=== PATIENT | female | born 1995 | race Caucasian/White ===

== ENCOUNTER → 2020-03-13 | Outpatient (CLI) | payer OTHER, SELFPAY ==
--- NOTE | 2020-03-13 14:50 | REP ---
INDICATION: COVID 19. COMPARISON: No comparison study. TECHNIQUE: Two views.. FINDINGS: The lungs are well inflated and free of infiltrate. The pleural angles are sharp. The heart size is normal. Pulmonary vasculature is not increased. No significant bony abnormality is seen. IMPRESSION: Negative chest x-ray. <Electronically signed by Omid Garvey > 03/13/20 [id number]
== END ==
LOC: M RAD 14:04
PROVIDERS: ATTEND Physician Assistant
DX: Z20.828 Contact with and (suspected) exposure to other viral communicable diseases (principal)

== ENCOUNTER 2020-08-24 09:10 | Emergency (ER) | payer MEDICAID, OTHER ==
[~2020-08-24] VITALS: Ht 175.3 cm; Wt 111.4 kg
[2020-08-24 09:11] VITALS: BP 138/89
[2020-08-24] MEDS ORDERED: VENL75CA47 (09:27)
[2020-08-24] MEDS ORDERED: ARIP1TAB6 (09:27)
--- NOTE | 2020-08-24 09:40 | REP ---
INDICATION: injury, pulled on and felt popping sensation. COMPARISON: None. TECHNIQUE: Three views of the shoulder were performed. FINDINGS: The acromioclavicular and glenohumeral relationships are within normal limits. There is no acute fracture or destructive osseous lesion. IMPRESSION: Negative <Electronically signed by Colby Garcia > 08/24/20 0936
[2020-08-24] MEDS ORDERED: METH-1164 PO (10:14)
[2020-08-24] MEDS ORDERED: KETO10TAB PO (10:14)
== END 2020-08-24 10:50 | disposition home or self-care (01) ==
LOC: M ED 09:10
DX: S46.011A Strain of muscle(s) and tendon(s) of the rotator cuff of right shoulder, initial encounter (principal); Y99.0 Civilian activity done for income or pay; Y92.9 Unspecified place or not applicable; Y93.9 Activity, unspecified; Z79.899 Other long term (current) drug therapy

== ENCOUNTER → 2021-03-27 | Outpatient (REF) ==
[~2021-03-27] MED LIST: ARIP1TAB6; KETO10TAB PO; METH-1164 PO; VENL75CA47
== END ==
LOC: M LABSMTC 10:39
PROVIDERS: ATTEND Pediatrics
DX: Z11.52 Encounter for screening for COVID-19 (principal)

== ENCOUNTER → 2021-06-02 | Outpatient (CLI) | payer OTHER ==
[~2021-06-02] MED LIST changes: +IBUP-1114 PO
== END ==
LOC: M LABSMTC 11:17
PROVIDERS: ATTEND Orthopaedic Surgery Sports Medicine
DX: Z01.812 Encounter for preprocedural laboratory examination (principal); Z20.822 Contact with and (suspected) exposure to COVID-19

== ENCOUNTER 2021-06-07 06:53 | Day surgery (SDC) | payer OTHER ==
[~2021-06-07] VITALS: Ht 175.3 cm; Wt 108.4 kg
[~2021-06-07 06:53] MED LIST changes: +LR 1,000 ML IV ONE; +ceFAZolin SOD 2 GM in IV 1 EA IV ONE
[2021-06-07] MEDS ORDERED: fentaNYL 100 MCG/2 ML INJECTION (J3010) IV PRN ×2 (07:01→12:15)
[2021-06-07] MEDS ORDERED: MIDAZOLAM INJ 2MG/2ML VIAL (J2250 PER 1MG) IV PRN (07:01)
[2021-06-07] MEDS ORDERED: dexameTHASONE 10MG/1ML VIAL PRES.FREE (J1100 PER 1MG) XX ONE (09:00)
[2021-06-07] MEDS ORDERED: EPINEPHrine INJ 1 MG/ML 1ML AMP XX ONE (09:00)
[2021-06-07] MEDS ORDERED: ROPIvacaine 0.5% 30ML INJECTION (J2795 PER 1MG) XX ONE (09:15)
[2021-06-07] MEDS ORDERED: propofoL 200 MG/20 ML VIAL As Ordered ONE (10:19)
[2021-06-07] MEDS ORDERED: dexameTHASONE 4 MG/ML 1ML VIAL (J1100 PER 1MG) As Ordered ONE (10:19)
[2021-06-07] MEDS ORDERED: fentaNYL 100 MCG/2 ML INJECTION (J3010) As Ordered ONE ×2 (10:19→10:39)
[2021-06-07] MEDS ORDERED: ONDANSETRON 4MG/2ML VIAL As Ordered ONE (10:19)
[2021-06-07] MEDS ORDERED: ROCURONIUM BROMIDE 50 MG/5 ML VIAL As Ordered ONE (10:19)
[2021-06-07] MEDS ORDERED: LIDOCAINE 2% 100MG/5ML SDV (FOR ANES.) As Ordered ONE (10:19)
[2021-06-07] MEDS ORDERED: MIDAZOLAM INJ 2MG/2ML VIAL (J2250 PER 1MG) As Ordered ONE (10:19)
[2021-06-07] MEDS ORDERED: ACETAMINOPHEN 1000MG 100ML IV BTL (OFIRMEV) (J0131 PER 10MG) As Ordered ONE (10:25)
[2021-06-07] MEDS ORDERED: SUGAMMADEX SODIUM 500 MG/5 ML VIAL (BRIDION) As Ordered ONE (10:40)
[2021-06-07] MEDS ORDERED: LR 1,000 ML IV SCH ×2 (12:15→12:20)
[2021-06-07] MEDS ORDERED: oxyCODONE 5MG TAB PO PRN (12:15)
[2021-06-07] MEDS ORDERED: ONDANSETRON 4MG/2ML VIAL IV PRN ×2 (12:15→12:20)
[2021-06-07] MEDS ORDERED: PERCOCET 5MG/325MG TAB PO PRN (12:20)
[2021-06-07] MEDS ORDERED: MORPHINE 2 MG/ML 1ML VIAL (J2270) IV PRN (12:20)
[2021-06-07 13:25] VITALS: BP 135/98
[2021-06-07] MEDS ORDERED: ACETAMINOPHEN TAB 650MG DOSE (2X325MG) PO PRN (16:30)
== END 2021-06-07 13:45 | disposition home or self-care (01) ==
LOC: M SDC 06:53
PROVIDERS: ATTEND Orthopaedic Surgery Sports Medicine
DX: M75.41 Impingement syndrome of right shoulder (principal); M75.51 Bursitis of right shoulder; S46.011A Strain of muscle(s) and tendon(s) of the rotator cuff of right shoulder, initial encounter; X58.XXXA Exposure to other specified factors, initial encounter; Y92.89 Other specified places as the place of occurrence of the external cause; M51.9 Unspecified thoracic, thoracolumbar and lumbosacral intervertebral disc disorder; L30.9 Dermatitis, unspecified; F41.9 Anxiety disorder, unspecified; F32.9 Major depressive disorder, single episode, unspecified; Z87.891 Personal history of nicotine dependence; Z79.1 Long term (current) use of non-steroidal anti-inflammatories (NSAID)
CPT/HCPCS: 29826; 29827; 64415; 81025; C1713; J0131; J0171; J0690; J1100; J2250; J2405; J2795; J3010

== ENCOUNTER → 2021-08-24 | Outpatient (CLI) | payer OTHER ==
[~2021-08-24] MED LIST changes: -LR 1,000 ML IV ONE; -ceFAZolin SOD 2 GM in IV 1 EA IV ONE
== END ==
LOC: M SOG 13:33
PROVIDERS: ATTEND Orthopaedic Surgery
DX: M75.41 Impingement syndrome of right shoulder (principal)

== ENCOUNTER → 2021-10-12 | Outpatient (CLI) | payer OTHER | LOC: M PLAIMG 06:46 | PROVIDERS: ATTEND Orthopaedic Surgery | DX: S46.011D Strain of muscle(s) and tendon(s) of the rotator cuff of right shoulder, subsequent encounter (principal); W18.30XD Fall on same level, unspecified, subsequent encounter ==

== ENCOUNTER → 2022-01-02 | Outpatient (REF) | LOC: M EMP 14:30 | PROVIDERS: ATTEND Family Medicine | DX: Z11.52 Encounter for screening for COVID-19 (principal) ==

== ENCOUNTER → 2022-05-02 | Outpatient (CLI) | payer OTHER ==
[~2022-05-02] MED LIST changes: +ISOVUE-300 61% 50ML VIAL ONE; +LIDOCAINE 1% MDV 20ML VIAL ONE; +PROHANCE 279.3MG/ML 5ML VIAL ONE
== END ==
LOC: M PLAIMG 12:48
PROVIDERS: ATTEND Orthopaedic Surgery
DX: S43.431D Superior glenoid labrum lesion of right shoulder, subsequent encounter (principal)
CPT/HCPCS: 23350; 73223; 77002; A9576

== ENCOUNTER 2022-08-14 10:38 | Day surgery (SDC) | payer OTHER ==
[~2022-08-14] VITALS: Ht 175.3 cm; Wt 108.0 kg
[~2022-08-14 10:38] MED LIST changes: -ISOVUE-300 61% 50ML VIAL ONE; -LIDOCAINE 1% MDV 20ML VIAL ONE; +LIDOCAINE 2% 100MG/5ML SDV (FOR ANES.) As Ordered ONE; +MIDAZOLAM INJ 2MG/2ML VIAL As Ordered ONE; -PROHANCE 279.3MG/ML 5ML VIAL ONE; +ROCURONIUM BROMIDE 50MG/5ML VIAL As Ordered ONE; +TRANEXAMIC ACID 100 MG/ML 10ML VIAL IV ONE; +ceFAZolin SOD 2 GM in IV 1 EA IV ONE; +fentaNYL 250 MCG/5 ML INJECTION As Ordered ONE; +oxyCODONE 5MG TAB PO ONE; +propofoL 200 MG/20 ML VIAL As Ordered ONE
[2022-08-14] MEDS ORDERED: LR 1,000 ML IV SCH ×2 (11:25→17:10)
[2022-08-14] MEDS ORDERED: fentaNYL 100 MCG/2 ML INJECTION IV PRN ×3 (12:35→17:10)
[2022-08-14] MEDS ORDERED: EPINEPHrine INJ 1 MG/ML 1ML AMP PN ONE (12:35)
[2022-08-14] MEDS ORDERED: LIDOCAINE 1% SDV 5ML VIAL PN ONE (12:35)
[2022-08-14] MEDS ORDERED: ROPIvacaine 0.5% 30ML VIAL PN ONE (12:35)
[2022-08-14] MEDS: MIDAZOLAM INJ 2MG/2ML VIAL IV PRN ×2 (13:44→13:47)
[2022-08-14] MEDS ORDERED: EPINEPHrine 1MG/ML INJ 30ML MD-VIAL As Ordered ONE (14:48)
[2022-08-14] MEDS ORDERED: TRANEXAMIC ACID 100 MG/ML 10ML VIAL As Ordered ONE (14:48)
[2022-08-14] MEDS ORDERED: LACRILUBE (AKWA TEARS) OPHTH OINT 3.5GM As Ordered ONE (14:52)
[2022-08-14] MEDS ORDERED: ACETAMINOPHEN 1000MG 100ML IV BAG As Ordered ONE (15:53)
[2022-08-14] MEDS ORDERED: SUGAMMADEX SODIUM 500 MG/5 ML VIAL (BRIDION) As Ordered ONE (15:53)
[2022-08-14] MEDS ORDERED: ONDANSETRON 4MG 2ML VIAL As Ordered ONE (15:53)
[2022-08-14] MEDS ORDERED: METOCLOPRAMIDE INJ 10MG/2ML VIAL As Ordered ONE (15:53)
[2022-08-14] MEDS ORDERED: KETOROLAC 60MG 2ML VIAL As Ordered ONE (15:53)
[2022-08-14] MEDS ORDERED: DESFLURANE 240 ML INHALANT As Ordered ONE (16:14)
[2022-08-14] MEDS ORDERED: MORPHINE 2 MG/ML 1ML VIAL IV PRN (16:35)
[2022-08-14] MEDS ORDERED: ONDANSETRON 4MG 2ML VIAL IV PRN ×2 (16:35→17:10)
[2022-08-14] MEDS ORDERED: oxyCODONE 5MG TAB PO PRN ×2 (16:35→17:10)
[2022-08-14] MEDS ORDERED: HYDR-3713 PO (16:58)
[2022-08-14] MEDS ORDERED: HYDROMORPHONE HCL 0.5 MG/ 0.5 ML SYRINGE IV PRN (17:10)
[2022-08-14 18:26] VITALS: BP 130/82
== END 2022-08-14 18:33 | disposition home or self-care (01) ==
LOC: M SDC 10:38
PROVIDERS: ATTEND Orthopaedic Surgery
DX: M75.41 Impingement syndrome of right shoulder (principal); S43.131A Dislocation of right acromioclavicular joint, greater than 200% displacement, initial encounter; M25.511 Pain in right shoulder; Z87.891 Personal history of nicotine dependence; F32.A Depression, unspecified; J45.909 Unspecified asthma, uncomplicated
CPT/HCPCS: 29823; 29826; 29828; 64415; 81025; 88304; C1713; J0131; J0171; J0690; J1100; J1885; J2250; J2405; J2765; J2795; J3010

== ENCOUNTER → 2023-12-05 | Outpatient (REF) | payer OTHER ==
[~2023-12-05] MED LIST changes: +HYDR-3713 PO; -LIDOCAINE 2% 100MG/5ML SDV (FOR ANES.) As Ordered ONE; -MIDAZOLAM INJ 2MG/2ML VIAL As Ordered ONE; -ROCURONIUM BROMIDE 50MG/5ML VIAL As Ordered ONE; -TRANEXAMIC ACID 100 MG/ML 10ML VIAL IV ONE; -ceFAZolin SOD 2 GM in IV 1 EA IV ONE; -fentaNYL 250 MCG/5 ML INJECTION As Ordered ONE; -oxyCODONE 5MG TAB PO ONE; -propofoL 200 MG/20 ML VIAL As Ordered ONE
== END ==
LOC: M PLALAB 08:44
PROVIDERS: ATTEND Obstetrics & Gynecology
DX: Z34.92 Encounter for supervision of normal pregnancy, unspecified, second trimester (principal)

== ENCOUNTER → 2023-12-07 | Outpatient (CLI) | payer OTHER ==
[2023-12-07 14:08] LABS: HEMATOCRIT 44.3 % (36.0-47.0); HEMOGLOBIN 15.1 g/dl (12.0-15.5); MEAN CORPUSCULAR HEMOGLOBIN 29.5 pg (27.0-33.0); MEAN CORPUSCULAR HGB CONC 34.1 g/dl (32.0-36.5); MEAN CORPUSCULAR VOLUME 86.5 fl (80.0-96.0); PLATELET COUNT, AUTOMATED 267 10^3/uL (150-450); RED BLOOD COUNT 5.12 10^6/uL (4.00-5.40); WHITE BLOOD COUNT 10.6 10^3/uL (4.0-10.0)
[2023-12-07 15:07] LABS: HIV 1&2 SCREEN NEGATIVE (NEGATIVE)
[2023-12-07 15:14] LABS: HEPATITIS C VIRUS ABY INDEX < 0.02 INDEX (<0.8)
[2023-12-07 15:36] LABS: GC DNA AMPLIFICATION NEGATIVE (NEGATIVE)
== END ==
LOC: M LAB 13:30
PROVIDERS: ATTEND Obstetrics & Gynecology
DX: Z34.92 Encounter for supervision of normal pregnancy, unspecified, second trimester (principal)

== ENCOUNTER → 2023-12-24 | Outpatient (CLI) | payer OTHER | LOC: M PLALAB 16:23 | PROVIDERS: ATTEND Nurse Practitioner Women's Health | DX: Z34.92 Encounter for supervision of normal pregnancy, unspecified, second trimester (principal) ==

== ENCOUNTER → 2024-01-20 | Outpatient (CLI) | payer OTHER | LOC: M WHC 07:46 | PROVIDERS: ATTEND Nurse Practitioner Women's Health | DX: Z36.89 Encounter for other specified antenatal screening (principal); Z3A.18 18 weeks gestation of pregnancy ==

== ENCOUNTER → 2024-02-14 | Outpatient (CLI) | payer SELFPAY | LOC: M WHC 07:02 | PROVIDERS: ATTEND Advanced Practice Midwife | DX: Z34.82 Encounter for supervision of other normal pregnancy, second trimester (principal) ==

== ENCOUNTER → 2024-03-13 | Outpatient (REF) | LOC: M EMP 11:08 | PROVIDERS: ATTEND Family Medicine | DX: Z11.52 Encounter for screening for COVID-19 (principal) ==

== ENCOUNTER → 2024-03-20 | Outpatient (CLI) | payer OTHER ==
[~2024-03-20] MED LIST changes: +ACET-907 PO; +PREN29CH2 PO; +TUMS500C PO
[2024-03-20 08:20] LABS: HEMATOCRIT 39.5 % (36.0-47.0); MEAN CORPUSCULAR HEMOGLOBIN 28.1 pg (27.0-33.0); MEAN CORPUSCULAR HGB CONC 32.9 g/dl (32.0-36.5); MEAN CORPUSCULAR VOLUME 85.5 fl (80.0-96.0); PLATELET COUNT, AUTOMATED 239 10^3/uL (150-450); RED BLOOD COUNT 4.62 10^6/uL (4.00-5.40); WHITE BLOOD COUNT 9.6 10^3/uL (4.0-10.0)
[2024-03-20 08:53] LABS: GLUCOSE CHALLENGE TEST 1 HOUR 106 MG/DL (LESS THAN 140)
[2024-03-20 09:22] LABS: HIV 1&2 SCREEN NEGATIVE (NEGATIVE)
[2024-03-20 09:30] LABS: HEPATITIS C VIRUS ABY INDEX < 0.02 INDEX (<0.8)
[2024-03-20 10:56] LABS: GC DNA AMPLIFICATION NEGATIVE (NEGATIVE)
== END ==
LOC: M LAB 06:36
PROVIDERS: ATTEND Obstetrics & Gynecology
DX: Z34.82 Encounter for supervision of other normal pregnancy, second trimester (principal)

== ENCOUNTER 2024-03-23 15:11 | Outpatient (CLI) | payer OTHER ==
[~2024-03-23] VITALS: Ht 175.3 cm; Wt 115.0 kg
[~2024-03-23 15:11] MED LIST changes: -ACET-907 PO; -PREN29CH2 PO; -TUMS500C PO
[2024-03-23] MEDS ORDERED: PREN29CH2 PO (15:24)
[2024-03-23] MEDS ORDERED: TUMS500C PO (15:24)
[2024-03-23] MEDS ORDERED: ACET-907 PO (15:25)
[2024-03-23 15:27] VITALS: BP 131/68
== END 2024-03-23 16:20 | disposition home or self-care (01) ==
LOC: M LDO 15:11
PROVIDERS: ATTEND Advanced Practice Midwife
DX: O36.8130 Decreased fetal movements, third trimester, not applicable or unspecified (principal); O99.343 Other mental disorders complicating pregnancy, third trimester; O36.0139 Maternal care for anti-D [Rh] antibodies, third trimester, other fetus; F60.3 Borderline personality disorder; Z3A.28 28 weeks gestation of pregnancy
CPT/HCPCS: 59025; G0463

== ENCOUNTER → 2024-04-27 | Outpatient (CLI) | payer OTHER ==
[~2024-04-27] MED LIST changes: +ACET-907 PO; +PREN29CH2 PO; +TUMS500C PO
== END ==
LOC: M SOG 08:01
PROVIDERS: ATTEND Orthopaedic Surgery
DX: M25.511 Pain in right shoulder (principal)

== ENCOUNTER → 2024-05-18 | Outpatient (REF) | payer OTHER | LOC: M PLALAB 15:04 | PROVIDERS: ATTEND Obstetrics & Gynecology | DX: Z36.89 Encounter for other specified antenatal screening (principal); Z3A.36 36 weeks gestation of pregnancy ==

== ENCOUNTER → 2024-05-18 | Outpatient (CLI) | payer OTHER | LOC: M SOG 07:56 | PROVIDERS: ATTEND Orthopaedic Surgery | DX: M25.511 Pain in right shoulder (principal) ==

== ENCOUNTER → 2024-06-03 | Outpatient (CLI) | payer OTHER | LOC: M SOG 07:59 | PROVIDERS: ATTEND Orthopaedic Surgery | DX: Z53.9 Procedure and treatment not carried out, unspecified reason (principal) ==